=== PATIENT | male | born 1965 | race Caucasian/White ===

== ENCOUNTER 2017-04-28 19:08 | Emergency (ER) | payer SELFPAY ==
--- NOTE | 2017-04-28 21:55 | CT ---
CT BRAIN NONCONTRAST: HISTORY: 51-year-old male with diplopia and headache. FINDINGS: There is no midline shift or any other mass effect. There is no evidence of acute intracranial hemor rhage, large cortical infarct, obstructive hydrocephalus, or extraaxial fluid collection. The calvar ium is intact. IMPRESSION: No acute intracranial findings. meka POS: [facility]
== END 2017-04-28 21:43 | disposition home or self-care (01) ==
LOC: ERS 19:08
DX: H53.2 Diplopia (principal); J45.909 Unspecified asthma, uncomplicated; F17.210 Nicotine dependence, cigarettes, uncomplicated; Z79.899 Other long term (current) drug therapy
CPT/HCPCS: 70450

== ENCOUNTER 2018-01-26 13:50 | Emergency (ER) | payer SELFPAY ==
--- NOTE | 2018-01-26 15:20 | RAD ---
RADIOGRAPH CHEST 1 VIEW: HISTORY: 52-year-old male with cough. FINDINGS: There are no air space densities, pulmonary edema, pneumothorax, or cardiomegaly. The lateral costop hrenic angles are sharp. IMPRESSION: No acute cardiopulmonary findings. jn [] POS: [facility]
[2018-01-26] MEDS ORDERED: predniSONE 20 MG TAB ONE (16:01)
== END 2018-01-26 16:33 | disposition home or self-care (01) ==
LOC: ERS 13:50
DX: J45.901 Unspecified asthma with (acute) exacerbation (principal); F17.210 Nicotine dependence, cigarettes, uncomplicated; Z79.51 Long term (current) use of inhaled steroids
CPT/HCPCS: 71045; 94640; J7506; J7620

== ENCOUNTER 2018-01-31 21:38 | Emergency (ER) | payer SELFPAY ==
[2018-01-31 22:19] LABS: #Eosinphils 0.1 thou/uL (0.0-0.7); #Lymphocytes 1.7 thou/uL (1.20-3.40); #Monocytes 1.8 thou/uL (0.11-0.59); #Neutrophils 9.5 thou/uL (1.40-6.50); %Basophils 0.3 % (0.0-1.0); %Eosinophils 0.6 % (0.0-10.0); %Monocytes 13.8 % (0.0-10.0); %Neutrophils 72.2 % (42.0-75.0); Hemoglobin 15.2 g/dL (14.0-18.0); Mean Corpuscular HGB CONC 34.5 g/dL (32.0-36.0); Mean Corpuscular Volume 92.9 fL (78.0-98.0); Mean Platelet Volume 6.5 fL (7.4-10.4); Platelet Count 250 thou/uL (130-400); RBC Distribution Width 11.5 % (11.5-14.5); Red Blood Cell (RBC) Count 4.76 mill/uL (4.70-6.10); White Blood Cell (WBC) Count 13.1 thou/uL (4.8-10.8)
--- NOTE | 2018-01-31 22:36 | RAD ---
PORTABLE CHEST: 01/31/18 HISTORY: Shortness of breath. COMPARISON: 01/26/18 study. Heart size and mediastinum are within normal limits. The lungs are clear of infiltrates. No significa nt bony findings. IMPRESSION: No active intrathoracic disease. POS: [facility]
[2018-01-31 22:38] LABS: ALT (SGPT) 85 U/L (8-55); AST (SGOT) 37 U/L (5-34); Albumin 3.9 g/dL (3.5-5.0); Alkaline Phosphatase 58 U/L (40-150); Anion Gap 12 mmol/L (10-20); BUN (Urea Nitrogen) 12 mg/dL (8.4-25.7); Bilirubin, Total 0.7 mg/dL (0.2-1.2); Calc. Creatinine Clearance 0 mL/min (70-130); Calcium 9.4 mg/dL (7.8-10.44); Carbon Dioxide 28 mmol/L (22-29); Chloride 99 mmol/L (98-107); Estimated GFR-MDRD Greater than 90; Globulin 3.9 g/dL (2.4-3.5); Glucose 126 mg/dL (70-105); Potassium 3.5 mmol/L (3.5-5.1); Protein, Total 7.8 g/dL (6.0-8.3); Sodium 135 mmol/L (136-145)
[2018-01-31] MEDS ORDERED: Azithromycin 250 MG TAB ONE (23:18)
[2018-01-31] MEDS ORDERED: Albuterol Sulfate 2.5 mg/0.5 ml Neb ONE ×2 (23:18→23:21)
[2018-01-31] MEDS ORDERED: methylPREDNISolone Sod Succ/PF 125 MG/2 ML VIAL ONE (23:18)
[2018-01-31] MEDS ORDERED: cefTRIAXone\\ROCEPHIN 2 GM VIAL ONE (23:18)
[2018-01-31] MEDS ORDERED: Albuterol Sulfate 1.25 MG/3 ML NEB ONE (23:20)
--- NOTE | 2018-02-06 15:35 | EKG ---
Test Reason : Blood Pressure : / mmHG Vent. Rate : 114 BPM Atrial Rate : 114 BPM P-R Int : 130 ms QRS Dur : 078 ms QT Int : 310 ms P-R-T Axes : 067 -02 067 degrees QTc Int : 427 ms Sinus tachycardia Possible Left atrial enlargement Borderline ECG Confirmed by RYLAND WONG ([id number]), supervising editor trailer KARMEN SALVADOR ([id number]) on 02/06/2018 3:34:50 PM Referred By: Confirmed By:RYLAND WONG
== END 2018-02-01 00:40 | disposition home or self-care (01) ==
LOC: ERS 21:38
DX: J45.901 Unspecified asthma with (acute) exacerbation (principal); Z79.51 Long term (current) use of inhaled steroids
CPT/HCPCS: 71045; 80053; 83880; 84484; 85025; 93005; 96365; 96375; J0696; J2930; J7611; J7620

== ENCOUNTER 2018-06-04 19:11 | Emergency (ER) | payer SELFPAY ==
[2018-06-04 19:51] LABS: Bilirubin Negative (Negative); Blood, Urine Negative (Negative); Clarity CLEAR (Clear); Glucose, Urine (Dipstick) Negative (Negative); Leukocyte Negative (Negative); Nitrite Negative (Negative); Protein, Urine (Dipstick) Negative (Neg-Trace); Specific Gravity, Urine 1.002 (1.002-1.036); Urobilinogen 0.2 mg/dL (0.2-1.0)
== END 2018-06-04 20:27 | disposition left against medical advice (07) ==
LOC: ERS 19:11
DX: N50.812 Left testicular pain (principal); F17.210 Nicotine dependence, cigarettes, uncomplicated; J45.909 Unspecified asthma, uncomplicated
CPT/HCPCS: 81003; 87086; 99284

== ENCOUNTER 2018-08-13 19:44 | Emergency (ER) | payer SELFPAY ==
[2018-08-13 20:13] LABS: #Basophils 0.1 thou/uL (0.0-0.2); #Eosinphils 0.1 thou/uL (0.0-0.7); #Lymphocytes 1.5 thou/uL (1.20-3.40); #Monocytes 0.5 thou/uL (0.11-0.59); #Neutrophils 3.1 thou/uL (1.40-6.50); %Eosinophils 2.8 % (0.0-10.0); %Lymphocytes 28.5 % (21.0-51.0); %Monocytes 9.6 % (0.0-10.0); %Neutrophils 58.1 % (42.0-75.0); Hemoglobin 15.1 g/dL (14.0-18.0); Mean Corpuscular HGB CONC 34.8 g/dL (32.0-36.0); Mean Corpuscular Hemoglobin 33.1 pg (27.0-31.0); Mean Platelet Volume 5.8 fL (7.4-10.4); Platelet Count 265 thou/uL (130-400); RBC Distribution Width 11.8 % (11.5-14.5); Red Blood Cell (RBC) Count 4.58 mill/uL (4.70-6.10); White Blood Cell (WBC) Count 5.3 thou/uL (4.8-10.8)
--- NOTE | 2018-08-13 20:13 | RAD ---
Exam: Chest one view HISTORY:Syncopal episode. Comparison: 01/31/2018 FINDINGS: Cardiac silhouette: Normal Pulmonary vessels: Normal Costophrenic angles: Clear LUNGS: No masses or consolidation. Pneumothorax: None Osseous abnormalities: None IMPRESSION: No acute cardiopulmonary process.
[2018-08-13 20:40] LABS: ALT (SGPT) 155 U/L (8-55); AST (SGOT) 139 U/L (5-34); Alkaline Phosphatase 55 U/L (40-150); Anion Gap 16 mmol/L (10-20); BUN (Urea Nitrogen) 6 mg/dL (8.4-25.7); Bilirubin, Total 0.4 mg/dL (0.2-1.2); Calc. Creatinine Clearance 0 mL/min (70-130); Calcium 8.3 mg/dL (7.8-10.44); Carbon Dioxide 21 mmol/L (22-29); Chloride 104 mmol/L (98-107); Estimated GFR-MDRD Greater than 90; Globulin 3.5 g/dL (2.4-3.5); Glucose 96 mg/dL (70-105); Potassium 3.9 mmol/L (3.5-5.1); Protein, Total 7.5 g/dL (6.0-8.3); Sodium 137 mmol/L (136-145)
== END 2018-08-13 21:58 | disposition home or self-care (01) ==
LOC: ERS 19:44
DX: R55 Syncope and collapse (principal); J45.909 Unspecified asthma, uncomplicated; F17.210 Nicotine dependence, cigarettes, uncomplicated
CPT/HCPCS: 36415; 71045; 80053; 84484; 85025; 93005

== ENCOUNTER 2018-09-03 19:39 | Emergency (ER) | payer SELFPAY ==
--- NOTE | 2018-09-03 21:36 | ULT ---
EXAM: TESTICULAR ULTRASOUND WITH COLOR AND SPECTRAL DOPPLER IMAGIN09/03/18 HISTORY: Left testis pain and edema for months off and on, worse today. Left testis measures 3.4 x 3.5 x 2 cm. Right testis measures 3.0 x 5 x 2.4 cm. Multiple cysts are not ed superior to the left testis in the region of the epididymal head. The largest measures approximate ly 2.3 x 3.5 x 4.3 cm, evidence for probable multiple spermatoceles or large epididymal head cysts. T race left sided hydrocele. No intratesticular mass. Vascular duplex demonstrates arterial inflow and venous outflow to both testes. No evidence for testi cular torsion. IMPRESSION: No intratesticular mass or testicular torsion. Multiple thin wall cysts superior to the left testis e vidence for spermatoceles or multiple large epididymal cysts. Trace left sided hydrocele. POS: [facility]
== END 2018-09-03 22:15 | disposition home or self-care (01) ==
LOC: ERS 19:39
DX: N50.3 Cyst of epididymis (principal); J45.909 Unspecified asthma, uncomplicated; F17.210 Nicotine dependence, cigarettes, uncomplicated; Z71.6 Tobacco abuse counseling; Z79.899 Other long term (current) drug therapy
CPT/HCPCS: 76870; 93976; 99406

== ENCOUNTER 2018-10-07 11:04 | Emergency (ER) | payer SELFPAY ==
[2018-10-07] MEDS ORDERED: Ketorolac Tromethamine 60 MG/2 ML VIAL ONE (11:43)
--- NOTE | 2018-10-07 12:57 | ULT ---
SCROTAL SONOGRAM WITH DUPLEX EVALUATION: HISTORY: Left scrotal pain. COMPARISON: 09/03/2018. FINDINGS: On today's exam, the right testicle measures up to 5.0 cm and the left 4.5 cm. Good color and spectr al Doppler blow bilaterally. No masses on the right. Multiple large cysts associated with the left epididymis are again demonstrated. Similar in appearan ce to the recent exam. Minimal fluid in the left side of the scrotum, stable. IMPRESSION: 1. No evidence of testicular mass or torsion. 2. Multiple large left epididymal cysts and minimal hydrocele unchanged from the 09/03/2018 study. POS: [facility]
== END 2018-10-07 12:33 | disposition home or self-care (01) ==
LOC: ERS 11:04
DX: G89.29 Other chronic pain (principal); N50.812 Left testicular pain; F17.210 Nicotine dependence, cigarettes, uncomplicated; J45.909 Unspecified asthma, uncomplicated; Z79.51 Long term (current) use of inhaled steroids; Z79.899 Other long term (current) drug therapy
CPT/HCPCS: 76870; 93976; 96372; J1885

== ENCOUNTER 2019-04-27 15:34 | Emergency (ER) | payer SELFPAY ==
--- NOTE | 2019-04-27 16:33 | RAD ---
XR Chest Pa Lat STANDARD HISTORY: Cough and shortness of breath COMPARISON: 08/13/2018 FINDINGS: The heart size is normal. The lungs are well expanded without focal areas of consolidation, pneumothorax or pleural effusions. IMPRESSION: No radiographic evidence of acute cardiopulmonary process.
== END 2019-04-27 17:31 | disposition short-term general hospital (02) ==
LOC: ERS 15:34
DX: J45.901 Unspecified asthma with (acute) exacerbation (principal); Z21 Asymptomatic human immunodeficiency virus [HIV] infection status; F17.210 Nicotine dependence, cigarettes, uncomplicated
CPT/HCPCS: 71046; 94640; J7620

== ENCOUNTER 2019-05-31 16:34 | Emergency (ER) | payer SELFPAY ==
--- NOTE | 2019-05-31 17:06 | RAD ---
PORTABLE CHEST ONE VIEW: Date: 05-31-2019 Time: 4:55 p.m. History: Chest pain Comparison: 04-27-2019 FINDINGS: The heart size is normal. The lungs are well expanded without lobar consolidation, pneumothoraces or pleural effusions. IMPRESSION: No radiographic evidence of acute cardiopulmonary process. POS: [facility]
[2019-05-31 17:19] LABS: #Eosinphils 0.2 thou/uL (0.0-0.7); #Lymphocytes 2.9 thou/uL (1.20-3.40); #Monocytes 0.9 thou/uL (0.11-0.59); #Neutrophils 5.4 thou/uL (1.40-6.50); %Basophils 0.3 % (0.0-1.0); %Eosinophils 1.8 % (0.0-10.0); %Lymphocytes 31.2 % (21.0-51.0); %Monocytes 9.2 % (0.0-10.0); %Neutrophils 57.4 % (42.0-75.0); Hemoglobin 16.9 g/dL (14.0-18.0); Mean Corpuscular HGB CONC 34.6 g/dL (32.0-36.0); Mean Corpuscular Hemoglobin 33.3 pg (27.0-31.0); Mean Corpuscular Volume 96.1 fL (78.0-98.0); Mean Platelet Volume 5.9 fL (7.4-10.4); Platelet Count 210 thou/uL (130-400); RBC Distribution Width 12.2 % (11.5-14.5); Red Blood Cell (RBC) Count 5.08 mill/uL (4.70-6.10); White Blood Cell (WBC) Count 9.4 thou/uL (4.8-10.8)
[2019-05-31 17:48] LABS: ALT (SGPT) 51 U/L (8-55); AST (SGOT) 46 U/L (5-34); Albumin 4.5 g/dL (3.5-5.0); Alkaline Phosphatase 47 U/L (40-110); Anion Gap 14 mmol/L (10-20); BUN (Urea Nitrogen) 7 mg/dL (8.4-25.7); Bilirubin, Total 0.4 mg/dL (0.2-1.2); CK (CPK) 121 U/L (30-200); Calc. Creatinine Clearance 0 mL/min (70-130); Carbon Dioxide 25 mmol/L (22-29); Chloride 98 mmol/L (98-107); Estimated GFR-MDRD Greater than 90; Globulin 4.2 g/dL (2.4-3.5); Glucose 118 mg/dL (70-105); Potassium 3.6 mmol/L (3.5-5.1); Protein, Total 8.7 g/dL (6.0-8.3); Sodium 133 mmol/L (136-145)
--- NOTE | 2019-06-04 14:08 | EKG ---
Test Reason : Blood Pressure : / mmHG Vent. Rate : 091 BPM Atrial Rate : 091 BPM P-R Int : 156 ms QRS Dur : 086 ms QT Int : 352 ms P-R-T Axes : 071 011 055 degrees QTc Int : 432 ms Normal sinus rhythm Possible Left atrial enlargement Borderline ECG Confirmed by RYLAND WONG ([id number]), editor continuity and script KARMEN SALVADOR ([id number]) on 06/04/2019 2:07:46 PM Referred By: Confirmed By:RYLAND WONG
== END 2019-05-31 18:28 | disposition home or self-care (01) ==
LOC: ERS 16:34
DX: R07.89 Other chest pain (principal); M79.602 Pain in left arm; J45.909 Unspecified asthma, uncomplicated; B20 Human immunodeficiency virus [HIV] disease; F17.210 Nicotine dependence, cigarettes, uncomplicated; Z79.51 Long term (current) use of inhaled steroids; Z79.899 Other long term (current) drug therapy
CPT/HCPCS: 71045; 80053; 82550; 84484; 85025; 93005

== ENCOUNTER 2021-02-02 06:14 | Emergency (ER) | payer SELFPAY ==
[2021-02-02] MEDS ORDERED: methylPREDNISolone Sod Succ 40 MG VIAL ONE (06:38)
[2021-02-02] MEDS ORDERED: Lorazepam 2 MG/ML VIAL ONE (06:38)
[2021-02-02 07:04] LABS: #Eosinphils 0.2 thou/uL (0.0-0.7); #Monocytes 1.2 thou/uL (0.11-0.59); #Neutrophils 7.9 thou/uL (1.40-6.50); %Basophils 0.1 % (0.0-1.0); %Eosinophils 1.5 % (0.0-10.0); %Lymphocytes 9.4 % (21.0-51.0); %Neutrophils 77.1 % (42.0-75.0); Hemoglobin 14.8 g/dL (14.0-18.0); Mean Corpuscular HGB CONC 35.2 g/dL (32.0-36.0); Mean Corpuscular Hemoglobin 35.4 pg (27.0-31.0); Mean Platelet Volume 6.2 fL (7.4-10.4); Platelet Count 204 thou/uL (130-400); RBC Distribution Width 11.4 % (11.5-14.5); Red Blood Cell (RBC) Count 4.19 mill/uL (4.70-6.10); White Blood Cell (WBC) Count 10.2 thou/uL (4.8-10.8)
[2021-02-02 07:24] LABS: ALT (SGPT) 26 U/L (8-55); AST (SGOT) 28 U/L (5-34); Albumin 4.2 g/dL (3.5-5.0); Alkaline Phosphatase 55 U/L (40-110); Anion Gap 12 mmol/L (10-20); BUN (Urea Nitrogen) 11 mg/dL (8.4-25.7); Bilirubin, Total 0.4 mg/dL (0.2-1.2); Calc. Creatinine Clearance 0 mL/min (70-130); Calcium 9.2 mg/dL (7.8-10.44); Carbon Dioxide 25 mmol/L (22-29); Chloride 104 mmol/L (98-107); Globulin 3.6 g/dL (2.4-3.5); Glucose 129 mg/dL (70-105); Potassium 3.8 mmol/L (3.5-5.1); Protein, Total 7.8 g/dL (6.0-8.3); Sodium 137 mmol/L (136-145)
== END 2021-02-02 09:55 | disposition home or self-care (01) ==
LOC: ERS 06:14
DX: J45.901 Unspecified asthma with (acute) exacerbation (principal); J18.9 Pneumonia, unspecified organism; F17.210 Nicotine dependence, cigarettes, uncomplicated
CPT/HCPCS: 36415; 71045; 80053; 83605; 85025; 94640; 96365; 96375; J2060; J2920; J3490; J7620

== ENCOUNTER 2021-11-21 10:54 | Observation (INO) | payer SELFPAY ==
[2021-11-21] MEDS ORDERED: methylPREDNISolone Sod Succ/PF 125 MG/2 ML VIAL ONE (11:31)
[2021-11-21] MEDS ORDERED: Albuterol Sulfate 2.5 mg/0.5 ml Neb ONE (11:43)
[2021-11-21] MEDS ORDERED: Ipratropium Bromide 2.5 ml Neb ONE (11:43)
[2021-11-21 11:50] LABS: #Eosinphils 0.1 thou/uL (0.0-0.7); #Lymphocytes 0.9 thou/uL (1.20-3.40); #Monocytes 0.5 thou/uL (0.11-0.59); #Neutrophils 7.5 thou/uL (1.40-6.50); %Basophils 0.2 % (0.0-1.0); %Eosinophils 0.9 % (0.0-10.0); %Lymphocytes 9.7 % (21.0-51.0); %Monocytes 5.8 % (0.0-10.0); %Neutrophils 83.4 % (42.0-75.0); Hemoglobin 15.6 g/dL (14.0-18.0); Mean Corpuscular HGB CONC 33.9 g/dL (32.0-36.0); Mean Corpuscular Hemoglobin 33.5 pg (27.0-31.0); Mean Corpuscular Volume 98.8 fL (78.0-98.0); Mean Platelet Volume 6.4 fL (7.4-10.4); Platelet Count 191 thou/uL (130-400); RBC Distribution Width 11.8 % (11.5-14.5); Red Blood Cell (RBC) Count 4.66 mill/uL (4.70-6.10)
[2021-11-21 12:10] LABS: ALT (SGPT) 65 U/L (8-55); AST (SGOT) 45 U/L (5-34); Albumin 4.4 g/dL (3.5-5.0); Alkaline Phosphatase 52 U/L (40-110); Anion Gap 13 mmol/L (10-20); BUN (Urea Nitrogen) 10 mg/dL (8.4-25.7); Bilirubin, Total 0.7 mg/dL (0.2-1.2); Calc. Creatinine Clearance 0 mL/min (70-130); Calcium 9.1 mg/dL (7.8-10.44); Carbon Dioxide 27 mmol/L (22-29); Chloride 100 mmol/L (98-107); Estimated GFR 93; Globulin 3.4 g/dL (2.4-3.5); Glucose 127 mg/dL (70-105); Protein, Total 7.8 g/dL (6.0-8.3); Sodium 136 mmol/L (136-145)
[2021-11-21] MEDS ORDERED: Magnesium 2 GM/50 ML(in water) 2 GM in Premix Bag 1 BAG IVPB SCH (12:15)
[2021-11-21] MEDS ORDERED: Albuterol Sulfate 2.5 mg/3 ml Neb ONE (13:33)
[2021-11-21] MEDS ORDERED: Acetaminophen 325 MG TAB PO PRN (13:37)
[2021-11-21] MEDS ORDERED: Ondansetron ODT 4 MG TAB PO PRN (13:37)
[2021-11-21] MEDS ORDERED: cefTRIAXone\\ROCEPHIN 1 GM in Sodium Chloride 0.9% 100 ML IVPB SCH (14:00)
[2021-11-21] MEDS ORDERED: Lactated Ringer's 1,000 ML IV SCH (14:00)
[2021-11-21] MEDS ORDERED: Azithromycin 500 MG in Sodium Chloride 0.9% 250 ML 250 ML IVPB SCH (14:00)
[2021-11-21] MEDS ORDERED: Folic Acid 1 MG TAB PO SCH (14:45)
[2021-11-21] MEDS ORDERED: Thiamine HCl 200 MG/2 ML VIAL SLOW IVP SCH (15:00)
[2021-11-21] MEDS ORDERED: Multivit, Therapeutic 1 TAB PO SCH (15:00)
[2021-11-21] MEDS ORDERED: Mometasone 200 MCG/Formoterol 5 MCG 120 PUFF INHALER INH SCH (15:45)
[2021-11-21 15:46] VITALS: BMI 27.3
[2021-11-21] MEDS: Albuterol Sulfate 2.5 mg/3 ml Neb NEB SCH ×3 (16:06→22:21)
[2021-11-21] MEDS ORDERED: Mometasone 100 MCG/Formoterol 5 MCG 120 PUFF INHALER INH SCH (21:00)
[2021-11-22] MEDS: Albuterol Sulfate 2.5 mg/3 ml Neb NEB SCH ×3 (02:32→10:38)
[2021-11-22] MEDS ORDERED: Mometasone 200 MCG/Formoterol 5 MCG 120 PUFF INHALER INH SCH (06:30)
[2021-11-22 06:59] LABS: ALT (SGPT) 48 U/L (8-55); AST (SGOT) 26 U/L (5-34); Albumin 4.1 g/dL (3.5-5.0); Alkaline Phosphatase 42 U/L (40-110); Anion Gap 12 mmol/L (10-20); BUN (Urea Nitrogen) 14 mg/dL (8.4-25.7); Bilirubin, Total 0.3 mg/dL (0.2-1.2); Calc. Creatinine Clearance 135 mL/min (70-130); Calcium 8.6 mg/dL (7.8-10.44); Carbon Dioxide 23 mmol/L (22-29); Chloride 103 mmol/L (98-107); Estimated GFR 106; Globulin 3.1 g/dL (2.4-3.5); Glucose 148 mg/dL (70-105); Potassium 3.8 mmol/L (3.5-5.1); Protein, Total 7.2 g/dL (6.0-8.3); Sodium 134 mmol/L (136-145)
[2021-11-22] MEDS ORDERED: predniSONE 20 MG TAB PO SCH (08:00)
[2021-11-22] MEDS ORDERED: Non-Formulary Item 1 EACH (Dolutegravir Sodium/Lamivudine [Dovato 50-300 Mg Tablet] 1 EAC PO SCH (09:00)
[2021-11-22] MEDS ORDERED: Multivit, Therapeutic 1 TAB PO SCH (09:00)
[2021-11-22] MEDS ORDERED: Azithromycin 250 MG TAB PO SCH (09:00)
[2021-11-22] MEDS ORDERED: Cefdinir 300 MG CAP PO SCH (09:00)
[2021-11-22] MEDS ORDERED: Folic Acid 1 MG TAB PO SCH (09:00)
[2021-11-22] MEDS ORDERED: FLU VACC QS2022-23(6MOS UP)/PF 60 MCG/0.5 ML SYRINGE IM ONE (09:00)
[2021-11-22 12:32] VITALS: TEMP 97.5
[2021-11-22 13:32] VITALS: BP 126/71
[2021-11-24] MEDS ORDERED: Thiamine 100 MG TAB PO SCH (15:00)
== END 2021-11-22 14:15 | disposition home or self-care (01) ==
LOC: ERS 10:54 → T4-A 14:54
PROVIDERS: ADMIT Family Medicine; ATTEND Family Medicine
DX: J96.01 Acute respiratory failure with hypoxia (principal); J44.1 Chronic obstructive pulmonary disease with (acute) exacerbation; F10.10 Alcohol abuse, uncomplicated; B18.2 Chronic viral hepatitis C; R74.01 Elevation of levels of liver transaminase levels; L25.5 Unspecified contact dermatitis due to plants, except food; Z21 Asymptomatic human immunodeficiency virus [HIV] infection status; Z87.891 Personal history of nicotine dependence; Z79.899 Other long term (current) drug therapy; Z20.822 Contact with and (suspected) exposure to COVID-19
CPT/HCPCS: 36415; 71045; 80053; 83880; 84145; 84484; 85025; 90471; 90686; 93005; 94640; 94644; 96374; 96375; G0008; G0378; J0456; J0696; J2930; J3411; J3475; J3490; J7050; J7120; J7512; J7611; J7620; U0003; U0005

== ENCOUNTER 2021-11-23 02:38 | Inpatient (IN) | payer SELFPAY ==
[2021-11-23] MEDS ORDERED: Albuterol Sulfate 2.5 mg/3 ml Neb ONE (02:41)
[2021-11-23] MEDS ORDERED: Albuterol Sulfate 2.5 mg/0.5 ml Neb ONE (02:41)
[2021-11-23] MEDS ORDERED: Azithromycin 500 MG VIAL ONE (02:48)
[2021-11-23] MEDS ORDERED: cefTRIAXone\\ROCEPHIN 1 GM VIAL ONE (02:48)
[2021-11-23] MEDS ORDERED: Ipratropium Bromide 2.5 ml Neb ONE (02:54)
[2021-11-23 02:57] LABS: #Lymphocytes 1.6 thou/uL (1.20-3.40); #Monocytes 1.2 thou/uL (0.11-0.59); #Neutrophils 13.3 thou/uL (1.40-6.50); %Eosinophils 0.1 % (0.0-10.0); %Monocytes 7.2 % (0.0-10.0); %Neutrophils 82.7 % (42.0-75.0); Hemoglobin 14.4 g/dL (14.0-18.0); Mean Corpuscular HGB CONC 34.1 g/dL (32.0-36.0); Mean Corpuscular Hemoglobin 33.8 pg (27.0-31.0); Mean Corpuscular Volume 99.2 fL (78.0-98.0); Mean Platelet Volume 6.9 fL (7.4-10.4); Platelet Count 232 thou/uL (130-400); Red Blood Cell (RBC) Count 4.25 mill/uL (4.70-6.10); White Blood Cell (WBC) Count 16.1 thou/uL (4.8-10.8)
[2021-11-23 03:06] LABS: Actual Bicarbonate (HCO3a) 23.1 mEq/L (22-28); Analyzer IN Cardio ER; Base Excess (BEa) 0.2 mEq/L (-2.0 to +3.0); CO2 Tension 32.6 mmHg (35.0-45.0); Calcium, Ionized (arterial) 1.08 mmol/L (1.12-1.30); Carboxyhemoglobin (COHb) 0.7 gm% (0.0-3.0); Hemoglobin (Hb) 14.4 g/dL (14.0-18.0); O2 Tension (PaO2), arterial 80.4 mmHg (80.0-100.0); Potassium - ABG Lab 3.41 mmol/L (3.70-5.30); pH, Arterial 7.47 (7.35-7.45)
[2021-11-23 03:09] LABS: Puncture Site LRA
[2021-11-23 03:13] LABS: ALT (SGPT) 48 U/L (8-55); AST (SGOT) 34 U/L (5-34); Albumin 4.1 g/dL (3.5-5.0); Alkaline Phosphatase 43 U/L (40-110); Anion Gap 14 mmol/L (10-20); BUN (Urea Nitrogen) 12 mg/dL (8.4-25.7); Bilirubin, Total 0.3 mg/dL (0.2-1.2); CK (CPK) 190 U/L (30-200); Calc. Creatinine Clearance 0 mL/min (70-130); Calcium 8.5 mg/dL (7.8-10.44); Carbon Dioxide 25 mmol/L (22-29); Chloride 103 mmol/L (98-107); Estimated GFR 103; Globulin 3.4 g/dL (2.4-3.5); Glucose 149 mg/dL (70-105); Potassium 3.6 mmol/L (3.5-5.1); Protein, Total 7.5 g/dL (6.0-8.3); Sodium 138 mmol/L (136-145)
[2021-11-23 04:22] LABS: SARS-CoV-2 NAA Rapid Test Not Detected (NotDetected)
[2021-11-23] MEDS ORDERED: Ondansetron PF 4 MG/2 ML Vial IVP PRN (04:48)
[2021-11-23] MEDS ORDERED: Acetaminophen 325 MG TAB PO PRN (04:48)
[2021-11-23] MEDS ORDERED: Cefepime 2 GM in Sodium Chloride 0.9% 100 ML IVPB SCH (05:00)
[2021-11-23 05:11] VITALS: BMI 27.8
[2021-11-23] MEDS ORDERED: VANCOMYCIN 1.75 GM/500 ML BAG 1.75 GM in Premix Bag 1 BAG IVPB SCH (06:00)
[2021-11-23 07:22] LABS: Troponin I 0.019 ng/mL (< 0.028)
[2021-11-23] MEDS ORDERED: methylPREDNISolone Sod Succ 40 MG VIAL IVP SCH (09:00)
[2021-11-23 09:44] LABS: Troponin I 0.012 ng/mL (< 0.028)
[2021-11-23] MEDS: Oseltamivir 75 MG CAP PO SCH ×2 (09:55→20:44)
[2021-11-23] MEDS: Enoxaparin Sodium 40 MG/0.4 ML SYRINGE SC SCH (09:55)
[2021-11-23] MEDS ORDERED: SUGAMMADEX SODIUM 200 MG/2 ML VIAL ONE (13:05)
[2021-11-23] MEDS: methylPREDNISolone Sod Succ 40 MG VIAL IVP SCH ×2 (17:33→23:38)
[2021-11-24] MEDS: methylPREDNISolone Sod Succ 40 MG VIAL IVP SCH (05:06)
[2021-11-24 06:26] LABS: #Basophils 0.1 thou/uL (0.0-0.2); #Lymphocytes 0.7 thou/uL (1.20-3.40); #Monocytes 0.7 thou/uL (0.11-0.59); #Neutrophils 8.8 thou/uL (1.40-6.50); %Basophils 0.7 % (0.0-1.0); %Eosinophils 0.1 % (0.0-10.0); %Lymphocytes 7.2 % (21.0-51.0); %Monocytes 6.5 % (0.0-10.0); %Neutrophils 85.5 % (42.0-75.0); Hemoglobin 12.7 g/dL (14.0-18.0); Mean Corpuscular HGB CONC 32.8 g/dL (32.0-36.0); Mean Corpuscular Hemoglobin 33.3 pg (27.0-31.0); Mean Platelet Volume 6.9 fL (7.4-10.4); Platelet Count 234 thou/uL (130-400); RBC Distribution Width 12.2 % (11.5-14.5); Red Blood Cell (RBC) Count 3.82 mill/uL (4.70-6.10); White Blood Cell (WBC) Count 10.3 thou/uL (4.8-10.8)
[2021-11-24 06:30] LABS: ALT (SGPT) 46 U/L (8-55); AST (SGOT) 32 U/L (5-34); Albumin 3.7 g/dL (3.5-5.0); Alkaline Phosphatase 36 U/L (40-110); Anion Gap 13 mmol/L (10-20); BUN (Urea Nitrogen) 10 mg/dL (8.4-25.7); Bilirubin, Total 0.3 mg/dL (0.2-1.2); Calc. Creatinine Clearance 157 mL/min (70-130); Calcium 8.3 mg/dL (7.8-10.44); Carbon Dioxide 22 mmol/L (22-29); Chloride 106 mmol/L (98-107); Estimated GFR 111; Globulin 2.9 g/dL (2.4-3.5); Glucose 152 mg/dL (70-105); Potassium 3.7 mmol/L (3.5-5.1); Protein, Total 6.6 g/dL (6.0-8.3); Sodium 137 mmol/L (136-145)
[2021-11-24] MEDS: Enoxaparin Sodium 40 MG/0.4 ML SYRINGE SC SCH (08:55)
[2021-11-24] MEDS: Oseltamivir 75 MG CAP PO SCH ×2 (08:55→19:25)
[2021-11-24] MEDS: Azithromycin 250 MG TAB PO SCH (08:55)
[2021-11-24] MEDS: guaiFENesin ER 600 MG TAB PO SCH ×2 (08:55→19:24)
[2021-11-24] MEDS ORDERED: predniSONE 20 MG TAB PO SCH (10:00)
[2021-11-24] MEDS ORDERED: Mometasone 100 MCG/Formoterol 5 MCG 120 PUFF INHALER INH SCH (10:00)
[2021-11-24] MEDS: Mometasone 100 MCG/Formoterol 5 MCG 120 PUFF INHALER INH SCH (18:40)
[2021-11-25 07:04] LABS: Hemoglobin 13.2 g/dL (14.0-18.0); Mean Corpuscular HGB CONC 33.1 g/dL (32.0-36.0); Mean Corpuscular Hemoglobin 33.3 pg (27.0-31.0); Mean Platelet Volume 6.8 fL (7.4-10.4); Platelet Count 270 thou/uL (130-400); RBC Distribution Width 12.2 % (11.5-14.5); Red Blood Cell (RBC) Count 3.97 mill/uL (4.70-6.10); White Blood Cell (WBC) Count 8.9 thou/uL (4.8-10.8)
[2021-11-25] MEDS: Mometasone 100 MCG/Formoterol 5 MCG 120 PUFF INHALER INH SCH (07:23)
[2021-11-25] MEDS ORDERED: predniSONE 20 MG TAB PO SCH ×2 (08:00)
[2021-11-25] MEDS: Azithromycin 250 MG TAB PO SCH (08:38)
[2021-11-25] MEDS: guaiFENesin ER 600 MG TAB PO SCH (08:39)
[2021-11-25] MEDS: Enoxaparin Sodium 40 MG/0.4 ML SYRINGE SC SCH (08:39)
[2021-11-25] MEDS: Oseltamivir 75 MG CAP PO SCH (08:40)
[2021-11-25 16:41] VITALS: BP 137/82; TEMP 97.8
== END 2021-11-25 17:15 | disposition home or self-care (01) | DRG 193 ==
LOC: ERS 02:38 → IMCU/EMU 03:54 → T4-A 16:48
PROVIDERS: ADMIT Family Medicine; ATTEND Family Medicine
PROC: 5A09357 Assistance with Respiratory Ventilation, Less than 24 Consecutive Hours, Continuous Positive Airway Pressure (ICD-10-PCS; principal; 2021-11-23)
DX: J10.1 Influenza due to other identified influenza virus with other respiratory manifestations (principal); J96.01 Acute respiratory failure with hypoxia; B20 Human immunodeficiency virus [HIV] disease; J44.1 Chronic obstructive pulmonary disease with (acute) exacerbation; F10.10 Alcohol abuse, uncomplicated; B19.20 Unspecified viral hepatitis C without hepatic coma; Z79.51 Long term (current) use of inhaled steroids; Z79.899 Other long term (current) drug therapy; Z82.5 Family history of asthma and other chronic lower respiratory diseases; Z20.822 Contact with and (suspected) exposure to COVID-19
CPT/HCPCS: 36415; 36600; 71045; 80053; 82550; 82805; 83605; 84145; 84484; 85025; 85027; 87040; 93005; 94640; 94660; 94760; 96365; 96366; 96368; J0456; J0692; J0696; J1650; J2920; J3370; J3490; J7512; J7611; J7620

== ENCOUNTER 2021-12-04 16:45 | Emergency (ER) | payer SELFPAY ==
[2021-12-04 17:12] LABS: #Eosinphils 0.1 thou/uL (0.0-0.7); #Lymphocytes 1.8 thou/uL (1.20-3.40); #Monocytes 1.7 thou/uL (0.11-0.59); #Neutrophils 16.1 thou/uL (1.40-6.50); %Basophils 0.2 % (0.0-1.0); %Eosinophils 0.4 % (0.0-10.0); %Lymphocytes 9.1 % (21.0-51.0); %Monocytes 8.6 % (0.0-10.0); %Neutrophils 81.8 % (42.0-75.0); Hemoglobin 15.8 g/dL (14.0-18.0); Mean Corpuscular HGB CONC 34.6 g/dL (32.0-36.0); Mean Corpuscular Hemoglobin 34.7 pg (27.0-31.0); Mean Platelet Volume 6.3 fL (7.4-10.4); Platelet Count 300 thou/uL (130-400); Red Blood Cell (RBC) Count 4.57 mill/uL (4.70-6.10); White Blood Cell (WBC) Count 19.7 thou/uL (4.8-10.8)
[2021-12-04 17:25] LABS: INR-International Normal Ratio 1.1; PTT 32.3 sec (22.9-36.1); Prothrombin Time 13.9 sec (12.0-14.7)
[2021-12-04 17:48] LABS: Albumin 4.3 g/dL (3.5-5.0)
[2021-12-04 17:49] LABS: Chloride 99 mmol/L (98-107); Sodium 135 mmol/L (136-145)
[2021-12-04 17:50] LABS: Calcium 9.6 mg/dL (7.8-10.44); Glucose 95 mg/dL (70-105)
[2021-12-04 17:51] LABS: Globulin 3.9 g/dL (2.4-3.5); Protein, Total 8.2 g/dL (6.0-8.3)
[2021-12-04 17:52] LABS: Anion Gap 14 mmol/L (10-20); Carbon Dioxide 26 mmol/L (22-29)
[2021-12-04 17:53] LABS: Alkaline Phosphatase 63 U/L (40-110)
[2021-12-04 17:54] LABS: Calc. Creatinine Clearance 0 mL/min (70-130); Estimated GFR 103
[2021-12-04 17:55] LABS: BUN (Urea Nitrogen) 7 mg/dL (8.4-25.7)
[2021-12-04 17:56] LABS: ALT (SGPT) 48 U/L (8-55); AST (SGOT) 26 U/L (5-34)
[2021-12-04] MEDS ORDERED: methylPREDNISolone Sod Succ/PF 125 MG/2 ML VIAL ONE (18:25)
== END 2021-12-04 20:06 | disposition home or self-care (01) ==
LOC: ERS 16:45
DX: J44.1 Chronic obstructive pulmonary disease with (acute) exacerbation (principal); B20 Human immunodeficiency virus [HIV] disease; Z87.891 Personal history of nicotine dependence
CPT/HCPCS: 36415; 71045; 83605; 85025; 85610; 85730; 93005; 94640; 94760; 96365; 96366; 96375; J1956; J2930

== ENCOUNTER 2022-04-01 13:13 | Inpatient (IN) | payer SELFPAY ==
[2022-04-01 14:16] LABS: #Eosinphils 0.1 thou/uL (0.0-0.7); #Lymphocytes 1.3 thou/uL (1.20-3.40); #Monocytes 1.3 thou/uL (0.11-0.59); #Neutrophils 7.8 thou/uL (1.40-6.50); %Basophils 0.4 % (0.0-1.0); %Eosinophils 1.1 % (0.0-10.0); %Lymphocytes 12.6 % (21.0-51.0); %Neutrophils 73.9 % (42.0-75.0); Hemoglobin 15.9 g/dL (14.0-18.0); Mean Corpuscular HGB CONC 35.1 g/dL (32.0-36.0); Mean Corpuscular Hemoglobin 34.5 pg (27.0-31.0); Mean Corpuscular Volume 98.3 fl (78.0-98.0); Mean Platelet Volume 6.5 fL (7.4-10.4); Platelet Count 218 10x3/uL (130-400); RBC Distribution Width 11.5 % (11.5-14.5); White Blood Cell (WBC) Count 10.6 10x3/uL (4.8-10.8)
[2022-04-01] MEDS ORDERED: Ipratropium/Albuterol 3 ML NEB ONE (14:18)
[2022-04-01] MEDS ORDERED: methylPREDNISolone Sod Succ/PF 125 MG/2 ML VIAL ONE (14:30)
[2022-04-01 14:37] LABS: SARS-CoV-2 NAA Rapid Test Not Detected (NotDetected)
[2022-04-01 14:39] LABS: ALT (SGPT) 36 U/L (8-55); AST (SGOT) 32 U/L (5-34); Albumin 4.6 g/dL (3.5-5.0); Alkaline Phosphatase 55 U/L (40-110); Anion Gap 14 mmol/L (10-20); BUN (Urea Nitrogen) 12 mg/dL (8.4-25.7); Bilirubin, Total 0.9 mg/dL (0.2-1.2); CK (CPK) 241 U/L (30-200); CRP (Inflammatory) 3.02 mg/dL (= or < 0.5); Calc. Creatinine Clearance 0 mL/min (70-130); Calcium 9.3 mg/dL (7.8-10.44); Carbon Dioxide 24 mmol/L (22-29); Chloride 100 mmol/L (98-107); Estimated GFR 105; Globulin 3.4 g/dL (2.4-3.5); Glucose 87 mg/dL (70-105); Potassium 3.9 mmol/L (3.5-5.1); Sodium 134 mmol/L (136-145)
[2022-04-01 15:32] LABS: Troponin I Less than 0.010 ng/mL (< 0.028)
[2022-04-01] MEDS ORDERED: Magnesium 2 GM/50 ML BAG (IN WATER) ONE (17:45)
[2022-04-01] MEDS ORDERED: Ipratropium/Albuterol 3 ML NEB NEB PRN (19:20)
[2022-04-01] MEDS ORDERED: Ondansetron PF 4 MG/2 ML Vial IVP PRN (19:23)
[2022-04-01] MEDS ORDERED: Acetaminophen 650 MG Suppository PR PRN (19:23)
[2022-04-01] MEDS ORDERED: Ondansetron ODT 4 MG TAB PO PRN (19:23)
[2022-04-01] MEDS ORDERED: Acetaminophen 325 MG TAB PO PRN (19:23)
[2022-04-01] MEDS: Azithromycin 500 MG in Sodium Chloride 0.9% 250 ML 250 ML IVPB SCH (21:44)
[2022-04-01] MEDS: Ipratropium/Albuterol 3 ML NEB NEB SCH (22:11)
[2022-04-02] MEDS: Ipratropium/Albuterol 3 ML NEB NEB SCH ×6 (01:53→22:18)
[2022-04-02 05:54] LABS: #Lymphocytes 0.7 thou/uL (1.20-3.40); #Monocytes 0.6 thou/uL (0.11-0.59); #Neutrophils 9.4 thou/uL (1.40-6.50); %Basophils 0.1 % (0.0-1.0); %Eosinophils 0.1 % (0.0-10.0); %Lymphocytes 6.5 % (21.0-51.0); %Monocytes 5.8 % (0.0-10.0); %Neutrophils 87.4 % (42.0-75.0); Hemoglobin 15.7 g/dL (14.0-18.0); Mean Corpuscular HGB CONC 34.6 g/dL (32.0-36.0); Mean Corpuscular Hemoglobin 34.4 pg (27.0-31.0); Mean Corpuscular Volume 99.6 fl (78.0-98.0); Mean Platelet Volume 6.7 fL (7.4-10.4); Platelet Count 228 10x3/uL (130-400); RBC Distribution Width 11.4 % (11.5-14.5); Red Blood Cell (RBC) Count 4.57 mill/uL (4.70-6.10); White Blood Cell (WBC) Count 10.7 10x3/uL (4.8-10.8)
[2022-04-02 06:22] LABS: Anion Gap 16 mmol/L (10-20); BUN (Urea Nitrogen) 16 mg/dL (8.4-25.7); Calc. Creatinine Clearance 135 mL/min (70-130); Calcium 9.4 mg/dL (7.8-10.44); Carbon Dioxide 21 mmol/L (22-29); Chloride 100 mmol/L (98-107); Estimated GFR 104; Glucose 154 mg/dL (70-105); Sodium 133 mmol/L (136-145)
[2022-04-02] MEDS ORDERED: Benzonatate 100 MG CAP PO PRN (08:59)
[2022-04-02] MEDS ORDERED: methylPREDNISolone Sod Succ 40 MG VIAL IVP SCH (09:00)
[2022-04-02] MEDS ORDERED: Dolutegravir Sodium/Lamivudine [Dovato 50-300 Mg Tablet] PO SCH (09:00)
[2022-04-02] MEDS: Benzonatate 100 MG CAP PO SCH ×2 (14:29→20:12)
[2022-04-02] MEDS: Mometasone 100 MCG/Formoterol 5 MCG 120 PUFF INHALER INH SCH (18:36)
[2022-04-02] MEDS: methylPREDNISolone Sod Succ 40 MG VIAL IVP SCH (20:12)
[2022-04-02] MEDS: Azithromycin 500 MG in Sodium Chloride 0.9% 250 ML 250 ML IVPB SCH (20:12)
[2022-04-03] MEDS: Ipratropium/Albuterol 3 ML NEB NEB SCH ×5 (01:00→19:25)
[2022-04-03] MEDS: Mometasone 100 MCG/Formoterol 5 MCG 120 PUFF INHALER INH SCH ×2 (07:09→19:29)
[2022-04-03] MEDS: Benzonatate 100 MG CAP PO SCH ×3 (08:01→19:53)
[2022-04-03] MEDS: methylPREDNISolone Sod Succ 40 MG VIAL IVP SCH ×2 (08:02→19:52)
[2022-04-03] MEDS: Azithromycin 500 MG in Sodium Chloride 0.9% 250 ML 250 ML IVPB SCH (19:52)
[2022-04-04] MEDS: Ipratropium/Albuterol 3 ML NEB NEB SCH (07:08)
[2022-04-04] MEDS: Mometasone 100 MCG/Formoterol 5 MCG 120 PUFF INHALER INH SCH (07:10)
[2022-04-04] MEDS: methylPREDNISolone Sod Succ 40 MG VIAL IVP SCH (08:09)
[2022-04-04] MEDS: Benzonatate 100 MG CAP PO SCH ×2 (08:09→15:19)
[2022-04-04 12:52] VITALS: BP 126/77; TEMP 97.7
== END 2022-04-04 15:45 | disposition home or self-care (01) | DRG 189 ==
LOC: ERS 13:13 → 2SW 17:18 → OBSVTOIN 04-02 15:37
PROVIDERS: ADMIT Family Medicine; ATTEND Family Medicine
DX: J96.01 Acute respiratory failure with hypoxia (principal); E87.1 Hypo-osmolality and hyponatremia; J44.1 Chronic obstructive pulmonary disease with (acute) exacerbation; J45.901 Unspecified asthma with (acute) exacerbation; B19.20 Unspecified viral hepatitis C without hepatic coma; Z21 Asymptomatic human immunodeficiency virus [HIV] infection status; Z20.822 Contact with and (suspected) exposure to COVID-19; Z87.891 Personal history of nicotine dependence; Z79.51 Long term (current) use of inhaled steroids; Z79.899 Other long term (current) drug therapy
CPT/HCPCS: 36415; 71045; 80048; 80053; 82550; 83880; 84484; 85025; 86140; 93005; 94640; 94664; 96365; 96372; 96375; G0378; J0456; J1650; J2920; J2930; J3475; J7050; J7620; U0002

== ENCOUNTER 2022-12-28 21:37 | Emergency (ER) | payer MEDICAID, OTHER ==
[2022-12-28 22:19] LABS: #Basophils 0.1 thou/uL (0.0-0.2); #Eosinphils 0.2 thou/uL (0.0-0.7); #Neutrophils 7.1 thou/uL (1.40-6.50); %Basophils 0.6 % (0.0-1.0); %Eosinophils 1.7 % (0.0-10.0); %Lymphocytes 16.2 % (21.0-51.0); %Monocytes 10.2 % (0.0-10.0); Hematocrit 42.6 % (42.0-52.0); Mean Corpuscular HGB CONC 35.2 g/dL (32.0-36.0); Mean Corpuscular Hemoglobin 33.7 pg (27.0-31.0); Mean Corpuscular Volume 95.7 fl (78.0-98.0); Mean Platelet Volume 8.6 fL (7.4-10.4); Platelet Count 199 10x3/uL (130-400); RBC Distribution Width 11.9 % (11.5-14.5); Red Blood Cell (RBC) Count 4.45 mill/uL (4.70-6.10)
[2022-12-28 22:44] LABS: ALT (SGPT) 72 U/L (8-55); AST (SGOT) 61 U/L (5-34); Albumin 4.4 g/dL (3.5-5.0); Alkaline Phosphatase 42 U/L (40-110); Anion Gap 16 mmol/L (10-20); BUN (Urea Nitrogen) 8 mg/dL (8.4-25.7); Bilirubin, Total 0.3 mg/dL (0.2-1.2); Calc. Creatinine Clearance 0 mL/min (70-130); Calcium 8.4 mg/dL (7.8-10.44); Carbon Dioxide 24 mmol/L (22-29); Chloride 99 mmol/L (98-107); Estimated GFR 103; Globulin 2.5 g/dL (2.4-3.5); Glucose 99 mg/dL (70-105); Protein, Total 6.9 g/dL (6.0-8.3); Sodium 135 mmol/L (136-145)
[2022-12-28 22:48] LABS: Troponin I 0.023 ng/mL (< 0.028)
[2022-12-29] MEDS ORDERED: Orphenadrine Citrate 60 MG/2 ML VIAL ONE (04:13)
[2022-12-29] MEDS ORDERED: Ketorolac Tromethamine 30 MG/ML VIAL ONE (04:13)
[2022-12-29 04:25] LABS: Magnesium 2.1 mg/dL (1.6-2.6)
[2022-12-29] MEDS ORDERED: Aspirin Chewable 81 MG TAB ONE (04:28)
[2022-12-29 04:31] LABS: Troponin I Less than 0.010 ng/mL (< 0.028)
== END 2022-12-29 06:00 | disposition home or self-care (01) ==
LOC: ERS 21:37
DX: M54.12 Radiculopathy, cervical region (principal); M79.602 Pain in left arm; F17.210 Nicotine dependence, cigarettes, uncomplicated; J45.909 Unspecified asthma, uncomplicated; Z79.51 Long term (current) use of inhaled steroids
CPT/HCPCS: 36415; 71045; 80053; 83735; 84484; 85025; 93005; 96372; J1885; J2360

== ENCOUNTER 2023-01-21 15:38 | Outpatient (CLI) | payer OTHER | END 2023-01-21 15:39 | disposition home or self-care (01) | LOC: ULT 15:38 | PROVIDERS: ATTEND Family Medicine | DX: L72.9 Follicular cyst of the skin and subcutaneous tissue, unspecified (principal); N50.3 Cyst of epididymis | CPT/HCPCS: 76870; 93976 ==

== ENCOUNTER 2023-02-05 03:01 | Emergency (ER) | payer OTHER ==
[2023-02-05] MEDS ORDERED: Ipratropium/Albuterol 3 ML NEB ONE (03:24)
[2023-02-05] MEDS ORDERED: Morphine 4 MG/ML VIAL ONE (03:25)
[2023-02-05] MEDS ORDERED: methylPREDNISolone Sod Succ/PF 125 MG/2 ML VIAL ONE (03:25)
[2023-02-05] MEDS ORDERED: Ketorolac Tromethamine 30 MG/ML VIAL ONE (03:25)
[2023-02-05 04:01] LABS: #Basophils 0.1 thou/uL (0.0-0.2); #Eosinphils 0.1 thou/uL (0.0-0.7); #Neutrophils 7.1 thou/uL (1.40-6.50); %Basophils 0.7 % (0.0-1.0); %Eosinophils 0.9 % (0.0-10.0); %Lymphocytes 7.2 % (21.0-51.0); %Monocytes 11.1 % (0.0-10.0); %Neutrophils 79.6 % (42.0-75.0); Hematocrit 43.2 % (42.0-52.0); Hemoglobin 15.2 g/dL (14.0-18.0); Mean Corpuscular HGB CONC 35.2 g/dL (32.0-36.0); Mean Corpuscular Hemoglobin 33.3 pg (27.0-31.0); Mean Corpuscular Volume 94.7 fl (78.0-98.0); Mean Platelet Volume 8.9 fL (7.4-10.4); Platelet Count 197 10x3/uL (130-400); RBC Distribution Width 12.2 % (11.5-14.5); Red Blood Cell (RBC) Count 4.56 mill/uL (4.70-6.10); White Blood Cell (WBC) Count 8.9 10x3/uL (4.8-10.8)
[2023-02-05 04:27] LABS: ALT (SGPT) 31 U/L (8-55); AST (SGOT) 34 U/L (5-34); Albumin 4.4 g/dL (3.5-5.0); Alkaline Phosphatase 57 U/L (40-110); Anion Gap 16 mmol/L (10-20); BUN (Urea Nitrogen) 9 mg/dL (8.4-25.7); Calc. Creatinine Clearance 0 mL/min (70-130); Carbon Dioxide 23 mmol/L (22-29); Chloride 95 mmol/L (98-107); Estimated GFR 102; Globulin 3.5 g/dL (2.4-3.5); Glucose 111 mg/dL (70-105); Lipase 21 U/L (8-78); Magnesium 1.9 mg/dL (1.6-2.6); Protein, Total 7.9 g/dL (6.0-8.3); Sodium 130 mmol/L (136-145)
[2023-02-05 04:31] LABS: Troponin I Less than 0.010 ng/mL (< 0.028)
[2023-02-05 04:44] LABS: SARS-CoV-2 NAA Rapid Test Not Detected (NotDetected)
[2023-02-05] MEDS ORDERED: Sodium Chloride 0.9% 100 ML ONE (05:42)
[2023-02-05] MEDS ORDERED: cefTRIAXone (ROCEPHIN) 2 GM VIAL ONE (05:42)
[2023-02-05] MEDS ORDERED: Iopamidol-370 76% 500 ML MDV (1 ML CHARGE) ONE (09:09)
== END 2023-02-05 06:14 | disposition home or self-care (01) ==
LOC: ERS 03:01
DX: J10.1 Influenza due to other identified influenza virus with other respiratory manifestations (principal); F17.210 Nicotine dependence, cigarettes, uncomplicated
CPT/HCPCS: 36415; 71275; 80053; 83605; 83690; 83735; 83880; 84484; 85025; 87040; 93005; 94640; 96374; 96375; J0696; J1885; J2270; J2930; J3490; J7620; Q9967

== ENCOUNTER 2023-02-07 14:48 | Emergency (ER) | payer OTHER ==
[2023-02-07] MEDS ORDERED: Dexamethasone 10 MG/ML VIAL ONE (15:04)
[2023-02-07] MEDS ORDERED: Dexamethasone 4 MG TAB ONE (15:05)
[2023-02-07] MEDS ORDERED: Ipratropium/Albuterol 3 ML NEB ONE (15:12)
== END 2023-02-07 16:08 | disposition home or self-care (01) ==
LOC: ERS 14:48
DX: J11.1 Influenza due to unidentified influenza virus with other respiratory manifestations (principal); J45.909 Unspecified asthma, uncomplicated; F17.210 Nicotine dependence, cigarettes, uncomplicated
CPT/HCPCS: 71045; 94640; J1100; J7620; J8540

== ENCOUNTER 2023-03-19 13:40 | Emergency (ER) | payer OTHER ==
[2023-03-19] MEDS ORDERED: Dexamethasone 10 MG/ML VIAL ONE (15:10)
[2023-03-19] MEDS ORDERED: Ipratropium/Albuterol 3 ML NEB ONE (15:37)
== END 2023-03-19 16:42 | disposition home or self-care (01) ==
LOC: ERS 13:40
DX: J45.901 Unspecified asthma with (acute) exacerbation (principal); B20 Human immunodeficiency virus [HIV] disease; F17.210 Nicotine dependence, cigarettes, uncomplicated; Z79.899 Other long term (current) drug therapy
CPT/HCPCS: 71046; 94640; J1100; J7620

== ENCOUNTER 2024-03-08 15:34 | Outpatient (CLI) | payer OTHER | END 2024-03-08 15:35 | disposition home or self-care (01) | LOC: BICULT 15:34 | PROVIDERS: ATTEND Urology | DX: N50.3 Cyst of epididymis (principal) | CPT/HCPCS: 76870; 93976 ==